=== PATIENT | male | born 1945 | race Caucasian/White ===

== ENCOUNTER 2019-03-15 12:45 | Emergency (ER) | payer SELFPAY ==
[~2019-03-15] VITALS: Ht 175.3 cm; Wt 80.0 kg
--- NOTE | 2019-03-15 14:18 | NUR ---
CHARGE NURSE: PT NOT IN LOBBY WHEN CALLED
--- NOTE | 2019-03-15 14:29 | NUR ---
CHARGE NURSE: PT TO ROOM FROM LOBBY
--- NOTE | 2019-03-15 14:36 | NUR ---
patient had a glf last night after a fall out of shower. he today reports all over back and neck pain. in gown, in bed, daniels
[2019-03-15] MEDS ORDERED: CYCLOBENZAPRINE 10 MG TABLET PO ONE (15:00)
[2019-03-15] MEDS ORDERED: HYDROmorphone 1 MG/ML, 1ML INJ IM ONE (15:00)
[2019-03-15] MEDS ORDERED: CYCLOBENZAPRINE 10 MG TABLET ONE (15:11)
[2019-03-15] MEDS ORDERED: HYDROmorphone 2 MG/ML, 1ML ONE (15:12)
--- NOTE | 2019-03-15 15:41 | NUR ---
STATES FEELS BETTER FROM PAIN MEDS. LEFT FOR XRAY
--- NOTE | 2019-03-15 16:02 | NUR ---
hr 40's. no chest pain. no syncope. md aware
[2019-03-15 17:01] VITALS: BP 115/78
--- NOTE | 2019-03-15 17:01 | NUR ---
DC CHARTING REVIEWED. SHOWS UNDERSTANDING
[2019-03-15] MEDS ORDERED: LIDOCAINE-MPF 1%, 5ML ONE (21:37)
== END 2019-03-15 17:03 | disposition home or self-care (01) ==
LOC: EDBD 12:45 → ED 16:57
DX: S43.52XA Sprain of left acromioclavicular joint, initial encounter (principal); S16.1XXA Strain of muscle, fascia and tendon at neck level, initial encounter; S39.012A Strain of muscle, fascia and tendon of lower back, initial encounter; R00.1 Bradycardia, unspecified; G89.29 Other chronic pain; R51 Headache; W01.0XXA Fall on same level from slipping, tripping and stumbling without subsequent striking against object, initial encounter; Y93.89 Activity, other specified; Y92.009 Unspecified place in unspecified non-institutional (private) residence as the place of occurrence of the external cause; Y99.8 Other external cause status
CPT/HCPCS: 70450; 72072; 72110; 72125; 73030; 93005; 96372; 99284; J1170